=== PATIENT | female | born 1995 | race African-American/Black ===

== ENCOUNTER 2017-06-17 15:39 | Emergency (ER) | payer BC ==
[~2017-06-17] VITALS: Ht 175.3 cm; Wt 62.8 kg
[2017-06-17 15:56] VITALS: TEMP 36.9; Ht 175.3 cm; Wt 62.8 kg
[2017-06-17] MEDS ORDERED: FLUT0.15 NAE (16:35)
[2017-06-17] MEDS ORDERED: MULT-1082 PO (16:35)
[2017-06-17] MEDS ORDERED: ALBU18002 INH (16:35)
--- NOTE | 2017-06-17 17:10 | EMERGENCY ROOM VISIT NOTE ---
History Report prepared by Eleanor: Johnathon Gutierrez Under the Supervision of: Dr. Arias Gentile M.D. First contact with patient: 16:12 Chief Complaint: SYNCOPE (NEAR SYNCOPE) Stated Complaint: NUMB TONGUE,DIZZINESS, WIRD ODOR ON TONGUE Nursing Triage Summary: Pt states, "My tongue was numb this morning. I almost passed in the shower." Pt states still has some numbness. Lightheadedness has improved. Pt states, "It smells like garlic, but I haven't eaten any." History of Present Illness The patient is a 21 year old female who presents to the Emergency Room with complaints of a sudden near syncopal episode occurring around 1000. The patient states that she woke up this morning around 0800 this morning, and the tip of her tongue was numb, yellow. and she tasted garlic, even though she did not eat any garlic. Then, she took a shower around 1000, and she felt dizzy, she had blurry vision, and her extremities felt weak. She then turned own the shower temperature and got out and laid down flat. After about ten minutes she started to feel more normal. She states that she did not totally lose consciousness, and she did not fall or have any traumas, and she remembers the whole event. She additionally states that she was having some palpitations and nausea along with this episode. She denies any traumas, shortness of breath, fever, photophobia, vomiting, abdominal pain, melena, hematochezia, trouble speaking, trouble swallowing, incontinence, headache, change in her sleep patterns, history of seizures, and other neurological history. The patient states that she has a history of asthma, and she takes Flonase, and she last took it two days ago. She reports that she has had a mild cough and diarrhea recently. The patient states that she has a family history of diabetes. The patient states that she has had pneumonia twice, though not recently, and her last menstrual period was a week and a half ago. Source of History: patient Onset: 1000 Position: other (global) Quality: other (near syncopal episode) Timing: other (sudden) Associated Symptoms: + cough, + nausea, + diarrhea, No fevers, No headache, No SOB, No vomiting, No abdominal pain, No melena, No hematochezia, No weakness , No numbness Note: Associated symptoms: Tongue numbness Review of Systems See HPI for pertinent positives & negatives. A total of 10 systems reviewed and were otherwise negative. Past Medical & Surgical Medical Problems: (1) Asthma Old medical records were reviewed. Nurse's notes were reviewed and I agree with. Family History Diabetes mellitus Social History Smoking Status: Never Smoker Drug Use: none Occupation Status: [employer] Current/Historical Medications Scheduled Multiple Vitamins W/ Minerals (Multivitamin Womens), 1 TAB PO DAILY Scheduled PRN Albuterol Sulfate (Proair Respiclick), 2 PUFFS INH TID PRN for Allergy Induced Asthma Fluticasone Propionate (Nasal) (Flonase Allergy Relief), 2 SPRAYS HOLLY DAILY PRN for Allergy Symptoms Allergies Coded Allergies: No Known Allergies (Unverified , 06/17/17) Physical Exam Vital Signs Date Time Temp Pulse Resp B/P (MAP) Pulse Ox O2 Delivery O2 Flow Rate FiO2 06/17/17 18:41 89 26 106/68 99 06/17/17 18:02 92 21 108/66 100 Room Air 06/17/17 17:25 79 06/17/17 17:16 89 28 101/65 96 Room Air 06/17/17 15:56 36.9 101 18 123/76 94 Room Air Physical Exam General: Non-ill appearing young female in no acute distress. HEENT: Normal cephalic atraumatic. Pupils are equal round and reactive to light. Extraocular movements are intact. Oropharynx is pink with moist mucous membranes. No lesions or thrush. No swelling of the mouth lips or tongue. Neck: Supple with a midline trachea. No meningeal signs or stiffness, no JVD or bruits. No Stridor. Chest: Clear to auscultation bilaterally. No wheezes or rhonchi. No increased work of breathing. Heart: regular rate and rhythm. Abdomen: Soft nontender, nondistended without rebound guarding or rigidity. Extremities: No cyanosis clubbing or edema. No calf tenderness or assymetry Spine/Back. Non tender to palpation. No CVA tenderness Skin: Good turgor without rashes. Neurologic exam: Cranial nerves two through 12 are intact. Motor and sensation are intact and symmetrical throughout. Medical Decision & Procedures Laboratory Results 06/17/17 16:59 Red Blood Count 4.66, Mean Corpuscular Volume 89.7, Mean Corpuscular Hemoglobin 30.3, Mean Corpuscular Hemoglobin Concent 33.7, Mean Platelet Volume 8.8, Neutrophils (%) (Auto) 63.7, Lymphocytes (%) (Auto) 29.4, Monocytes (%) (Auto) 6.2, Eosinophils (%) (Auto) 0.3, Basophils (%) (Auto) 0.3, Neutrophils # (Auto) 4.84, Lymphocytes # (Auto) 2.23, Monocytes # (Auto) 0.47, Eosinophils # (Auto) 0.02, Basophils # (Auto) 0.02 06/17/17 16:59 Test 06/17/17 16:59 06/17/17 17:01 White Blood Count 7.59 K/uL (4.8-10.8) Red Blood Count 4.66 M/uL (4.2-5.4) Hemoglobin 14.1 g/dL (12.0-16.0) Hematocrit 41.8 % (37-47) Mean Corpuscular Volume 89.7 fL (80-100) Mean Corpuscular Hemoglobin 30.3 pg (25-34) Mean Corpuscular Hemoglobin Concent 33.7 g/dl (32-36) Platelet Count 428 K/uL (130-400) Mean Platelet Volume 8.8 fL (7.4-10.4) Neutrophils (%) (Auto) 63.7 % Lymphocytes (%) (Auto) 29.4 % Monocytes (%) (Auto) 6.2 % Eosinophils (%) (Auto) 0.3 % Basophils (%) (Auto) 0.3 % Neutrophils # (Auto) 4.84 K/uL (1.4-6.5) Lymphocytes # (Auto) 2.23 K/uL (1.2-3.4) Monocytes # (Auto) 0.47 K/uL (0.11-0.59) Eosinophils # (Auto) 0.02 K/uL (0-0.5) Basophils # (Auto) 0.02 K/uL (0-0.2) RDW Standard Deviation 40.6 fL (36.4-46.3) RDW Coefficient of Variation 12.5 % (11.5-14.5) Immature Granulocyte % (Auto) 0.1 % Immature Granulocyte # (Auto) 0.01 K/uL (0.00-0.02) Anion Gap 7.0 mmol/L (3-11) Est Creatinine Clear Calc Drug Dose 115.1 ml/min Estimated GFR () 129.1 Estimated GFR (Non- 111.3 BUN/Creatinine Ratio 15.4 (10-20) Calcium Level 9.6 mg/dl (8.5-10.1) Total Bilirubin 0.5 mg/dl (0.2-1) Direct Bilirubin 0.1 mg/dl (0-0.2) Aspartate Amino Transf (AST/SGOT) 13 U/L (15-37) Alanine Aminotransferase (ALT/SGPT) 24 U/L (12-78) Alkaline Phosphatase 61 U/L (45-117) Total Protein 8.4 gm/dl (6.4-8.2) Albumin 4.3 gm/dl (3.4-5.0) Lipase 104 U/L (73-393) Thyroid Stimulating Hormone (TSH) 0.557 uIu/ml (0.300-4.500) Human Chorionic Gonadotropin, Qual NEG (NEG) Bedside Troponin I < 0.030 ng/ml (0-0.045) Laboratory studies as stated above per my review. ECG Indication: syncope (near syncope) Rate (beats per minute): 87 Rhythm: normal sinus Findings: no ectopy, other (Normal intervals. Early repolarization) Comparison ECG Date: no prior available ED Course 1612: The patient was evaluated by the medical student. 1638: Past medical records reviewed. The patient was evaluated in room B5, and a complete history and physical examination were performed. 1802: Upon reevaluation, the patient is asymptomatic and wants to go home. I discussed the results and treatment plan with her. She verbalized agreement of the treatment plan. The patient was discharged home. Medical Decision Differentials include, but are not limited to; seizure, vasovagal syncope, toxicologic process, metabolic abnormality. This patient comes in as described above she felt like her tongue was bilaterally numb this morning just on the tip. This has resolved. She has no neurologic deficits. She had an episode while she was in the shower and she felt dizzy like she might pass out. She did not actually pass out. She had no significant chest pain or shortness of breath. She has a normal neurologic exam and no previous medical history. At present, she is asymptomatic and looks great. IV access established EKG and blood work was obtained. She was reassessed frequently. EKG does not suggest acute coronary syndrome or significant arrhythmia. She has no acute electrolyte or metabolic abnormalities. She has nothing to suggest acute cardiac event and troponin was negative. She has nothing to suggest diabetes or thyroid disease. I do not think is a central neurologic process. I do not think I need to do a CAT scan of her head at this point and she agrees and would like to avoid the radiation. I think she did a vasovagal episode in the shower. She did not actually pass out but had visual changes and feeling like she was given pass out and felt better. I encouraged her to rest and drink plenty fluids and return if any recurrence of symptoms, worsening symptoms, numbness wheezes, any new problems or concerns encouraged to follow the [facility] this week. If she has another episode she may need to have neuro imaging as well. She was happy with the plan and discharged to home. Medication Reconcilliation Current Medication List: was personally reviewed by me Blood Pressure Screening Patient's blood pressure: Normal blood pressure Impression Primary Impression: Vasovagal near syncope Scribe Attestation The scribe's documentation has been prepared under my direction and personally reviewed by me in its entirety. I confirm that the note above accurately reflects all work, treatment, procedures, and medical decision making performed by me. Departure Information Dispostion Home / Self-Care Referrals No Doctor, Assigned (PCP) Forms HOME CARE DOCUMENTATION FORM, IMPORTANT VISIT INFORMATION Patient Instructions My [facility] Additional Instructions Rest. Drink plenty of fluids. Return if: recurrence of symptoms, chest pain, shortness of breath, numbness or weakness, any new problems or concerns. Follow-up with the [facility] this week for recheck
[2017-06-17 17:11] LABS: BASO % 0.3 %; BASO ABS # 0.02 K/uL (0-0.2); COMPLETE YES; EOS % 0.3 %; HEMATOCRIT 41.8 % (37-47); IG% 0.1 %; LYMPH % 29.4 %; LYMPH ABS # 2.23 K/uL (1.2-3.4); MEAN CELL VOLUME 89.7 fL (80-100); MEAN CORPUSCULAR HEMOGLOBIN 30.3 pg (25-34); MEAN CORPUSCULAR HGB CONC 33.7 g/dl (32-36); MEAN PLATELET VOLUME 8.8 fL (7.4-10.4); MONO % 6.2 %; NEUT % 63.7 %; PLATELET COUNT 428 K/uL (130-400); RED BLOOD COUNT 4.66 M/uL (4.2-5.4); WHITE BLOOD COUNT 7.59 K/uL (4.8-10.8)
[2017-06-17 17:48] LABS: THYROID STIMULATING HORMONE 0.557 uIu/ml (0.300-4.500)
[2017-06-17 17:49] LABS: BUN/CREATININE RATIO 15.4 (10-20); CALCIUM 9.6 mg/dl (8.5-10.1); CREATININE 0.76 mg/dl (0.60-1.20); POTASSIUM 3.7 mmol/L (3.5-5.1)
[2017-06-17 18:10] LABS: PREG INTERNAL NEGATIVE QC NEG CLEAR BACKGROUND; PREG INTERNAL POSITIVE QC POS CONTROL LINE
[2017-06-17 18:41] VITALS: BP 106/68; PULSE 89; O2SAT 99
== END 2017-06-17 18:40 | disposition home or self-care (01) ==
LOC: C.EDB 15:43
DX: R55 Syncope and collapse (principal); J45.909 Unspecified asthma, uncomplicated; R00.2 Palpitations; R11.0 Nausea; Z83.3 Family history of diabetes mellitus